=== PATIENT | male | born 1990 | race Caucasian/White ===

== ENCOUNTER 2016-08-04 01:46 | Emergency (ER) | payer BC ==
[2016-08-04] MEDS ORDERED: Ondansetron 4 MG/2 ML SDV IVPUSH ONE (01:57)
[2016-08-04] MEDS ORDERED: Sodium Chloride 0.9% 1,000 ML IV ONE (01:57)
--- NOTE | 2016-08-04 01:59 | EDM.PDOC ---
ED HPI GENERAL MEDICAL PROBLEM - General Chief Complaint: Gastrointestinal Problem Stated Complaint: FEVER, SUSPECTS FOOD POISONING Time Seen by Provider: 08/04/16 01:58 Source of Information: Reports: Patient - History of Present Illness INITIAL COMMENTS - FREE TEXT/NARRATIVE: HISTORY AND PHYSICAL: History of present illness: [] Patient said periumbilical pain since 4 PM he relates to eating chicken at [employer] intermittent fever nausea vomiting and diarrhea no chills or sweats Review of systems: As per history of present illness and below otherwise all systems reviewed and negative. Past medical history: As per history of present illness and as reviewed below otherwise noncontributory. Surgical history: As per history of present illness and as reviewed below otherwise noncontributory. Social history: No reported history of drug or alcohol abuse. Family history: As per history of present illness and as reviewed below otherwise noncontributory. Physical exam: HEENT: Atraumatic, normocephalic, pupils reactive, negative for conjunctival pallor or scleral icterus, mucous membranes moist, throat clear, neck supple, nontender, trachea midline. Lungs: Clear to auscultation, breath sounds equal bilaterally, chest nontender. Heart: S1S2, regular, negative for clicks, rubs, or JVD. Abdomen: Soft, nondistended, diffuse tenderness with focus in right lower quadrant mild guarding no rebound. Negative for masses or hepatosplenomegaly. Negative for costovertebral tenderness. Pelvis: Stable nontender. Genitourinary: Deferred. Rectal: Deferred. Extremities: Atraumatic, negative for cords or calf pain. Neurovascular unremarkable. Neuro: Awake, alert, oriented. Cranial nerves II through XII unremarkable. Cerebellum unremarkable. Motor and sensory unremarkable throughout. Exam nonfocal. Diagnostics: [] Lab as below CT abdomen pelvis with contrast Therapeutics: [] Liter normal saline bolus Zofran 8 mg IV Impression: [] Abdominal pain Gastroenteritis Definitive disposition and diagnosis as appropriate pending reevaluation and review of above. - Related Data Allergies Allergy/AdvReac Type Severity Reaction Status Date / Time naproxen Allergy Swelling Verified 08/04/16 01:53 Home Meds: Home Meds Omeprazole 2 tab PO ACBREAKFAST 11/07/15 [History] Past Medical History HEENT History: Reports: None Cardiovascular History: Reports: None Other Respiratory History: 10 yr history of smoking 1-2 packs per day Gastrointestinal History: Reports: GERD, Other (See Below) Other Gastrointestinal History: Heartburn Genitourinary History: Reports: None Musculoskeletal History: Reports: Fracture Other Musculoskeletal History: Some untreated fractures to hands, Nose several times Neurological History: Reports: None Psychiatric History: Reports: Bipolar Endocrine/Metabolic History: Reports: None Hematologic History: Reports: Blood Transfusion(s) Other Hematologic History: "Blood transfusion as a baby" Immunologic History: Reports: None Oncologic (Cancer) History: Reports: None Dermatologic History: Reports: None - Infectious Disease History Infectious Disease History: Reports: None - Past Surgical History Head Surgeries/Procedures: Reports: None HEENT Surgical History: Reports: None Cardiovascular Surgical History: Reports: None Respiratory Surgical History: Reports: None GI Surgical History: Reports: None Male Surgical History: Reports: None Endocrine Surgical History: Reports: None Neurological Surgical History: Reports: None Musculoskeletal Surgical History: Reports: None Oncologic Surgical History: Reports: None Dermatological Surgical History: Reports: None Social & Family History - Family History Family Medical History: Noncontributory - Tobacco Use Smoking Status *Q: Current Every Day Smoker Years of Tobacco use: 6 Packs/Tins Daily: 1.5 - Alcohol Use Days Per Week of Alcohol Use: 1 Number of Drinks Per Day: 4 Total Drinks Per Week: 4 - Recreational Drug Use Recreational Drug Use: No Drug Use in Last 12 Months: No ED ROS GENERAL - Review of Systems Review Of Systems: ROS reveals no pertinent complaints other than HPI. ED EXAM, GENERAL - Physical Exam Exam: See Below Course - Vital Signs Last Recorded V/S: Last Vital Signs Temp 36.4 C 08/04/16 01:56 Pulse 105 H 08/04/16 01:56 Resp 18 08/04/16 01:56 BP 178/109 H 08/04/16 01:56 Pulse Ox 98 08/04/16 01:56 - Orders/Labs/Meds Orders: Active Orders 24 hr Category Date Time Status Abdomen Pelvis w Cont [CT] Stat Exams 08/04/16 01:57 Taken Pantoprazole [ProTONIX IV] Med 08/04/16 03:49 Once 80 mg IVPUSH .BOLUS ONE Labs: Laboratory Tests 08/04/16 08/04/16 08/04/16 Range/Units 01:50 01:50 01:50 WBC 17.74 H (4.0-11.0) K/uL RBC 5.96 H (4.50-5.90) M/uL Hgb 17.6 H (13.0-17.0) g/dL Hct 51.4 H (38.0-50.0) % MCV 86.2 (80.0-98.0) fL MCH 29.5 (27.0-32.0) pg MCHC 34.2 (31.0-37.0) g/dL RDW Std Deviation 40.9 (28.0-62.0) fl RDW Coeff of Dominga 13 (11.0-15.0) % Plt Count 270 (150-400) K/uL MPV 9.20 (7.40-12.00) fL Neut % (Auto) 90.8 H (48.0-80.0) % Lymph % (Auto) 4.5 L (16.0-40.0) % Garvin % (Auto) 4.3 (0.0-15.0) % Eos % (Auto) 0.3 (0.0-7.0) % Baso % (Auto) 0.1 (0.0-1.5) % Neut # (Auto) 16.1 H (1.4-5.7) K/uL Lymph # (Auto) 0.8 (0.6-2.4) K/uL Garvin # (Auto) 0.8 (0.0-0.8) K/uL Eos # (Auto) 0.1 (0.0-0.7) K/uL Baso # (Auto) 0.0 (0.0-0.1) K/uL Nucleated RBC % 0.0 /100WBC Nucleated RBCs # 0 K/uL Sodium 141 (136-146) mmol/L Potassium 4.5 (3.5-5.1) mmol/L Chloride 105 (98-110) mmol/L Carbon Dioxide 22 (21-31) mmol/L BUN 16 (6.0-23.0) mg/dL Creatinine 1.4 (0.6-1.5) mg/dL Est Cr Clr Drug Dosing 102.46 mL/min Estimated GFR (MDRD) > 60.0 ml/min Glucose 136 H (60-110) mg/dL Calcium 10.2 (8.8-10.8) mg/dL Total Bilirubin 0.5 (0.1-1.5) mg/dL AST 17 (5-40) IU/L ALT 18 (8-54) IU/L Alkaline Phosphatase 57 (40-150) Troponin I < 0.10 (0.0-0.29) NG/ML Total Protein 8.9 H (6.0-8.0) g/dL Albumin 5.3 H (3.5-5.0) g/dL Globulin 3.6 H (2.0-3.5) g/dL Albumin/Globulin Ratio 1.5 (1.3-2.8) Amylase 54 (10-90) U/L Lipase 17 (7-80) U/L Urine Color Urine Appearance Urine pH (5.0-8.0) Ur Specific [place] (1.001-1.035) Urine Protein (NEGATIVE) mg/dL Urine Glucose (UA) (NEGATIVE) mg/dL Urine Ketones (NEGATIVE) mg/dL Urine Occult Blood (NEGATIVE) Urine Nitrite (NEGATIVE) Urine Bilirubin (NEGATIVE) Urine Ictotest Urine Urobilinogen (<2.0) EU/dL Ur Leukocyte Esterase (NEGATIVE) Urine RBC (0-2/HPF) Urine WBC (0-5/HPF) Ur Epithelial Cells (NONE-FEW) Urine Bacteria (NEGATIVE) Urine Mucus (NONE-MOD) 08/04/16 Range/Units 02:06 WBC (4.0-11.0) K/uL RBC (4.50-5.90) M/uL Hgb (13.0-17.0) g/dL Hct (38.0-50.0) % MCV (80.0-98.0) fL MCH (27.0-32.0) pg MCHC (31.0-37.0) g/dL RDW Std Deviation (28.0-62.0) fl RDW Coeff of Dominga (11.0-15.0) % Plt Count (150-400) K/uL MPV (7.40-12.00) fL Neut % (Auto) (48.0-80.0) % Lymph % (Auto) (16.0-40.0) % Garvin % (Auto) (0.0-15.0) % Eos % (Auto) (0.0-7.0) % Baso % (Auto) (0.0-1.5) % Neut # (Auto) (1.4-5.7) K/uL Lymph # (Auto) (0.6-2.4) K/uL Garvin # (Auto) (0.0-0.8) K/uL Eos # (Auto) (0.0-0.7) K/uL Baso # (Auto) (0.0-0.1) K/uL Nucleated RBC % /100WBC Nucleated RBCs # K/uL Sodium (136-146) mmol/L Potassium (3.5-5.1) mmol/L Chloride (98-110) mmol/L Carbon Dioxide (21-31) mmol/L BUN (6.0-23.0) mg/dL Creatinine (0.6-1.5) mg/dL Est Cr Clr Drug Dosing mL/min Estimated GFR (MDRD) ml/min Glucose (60-110) mg/dL Calcium (8.8-10.8) mg/dL Total Bilirubin (0.1-1.5) mg/dL AST (5-40) IU/L ALT (8-54) IU/L Alkaline Phosphatase (40-150) Troponin I (0.0-0.29) NG/ML Total Protein (6.0-8.0) g/dL Albumin (3.5-5.0) g/dL Globulin (2.0-3.5) g/dL Albumin/Globulin Ratio (1.3-2.8) Amylase (10-90) U/L Lipase (7-80) U/L Urine Color YELLOW Urine Appearance CLEAR Urine pH 7.0 (5.0-8.0) Ur Specific [place] 1.015 (1.001-1.035) Urine Protein TRACE (NEGATIVE) mg/dL Urine Glucose (UA) NEGATIVE (NEGATIVE) mg/dL Urine Ketones NEGATIVE (NEGATIVE) mg/dL Urine Occult Blood NEGATIVE (NEGATIVE) Urine Nitrite NEGATIVE (NEGATIVE) Urine Bilirubin SMALL H (NEGATIVE) Urine Ictotest NEGATIVE Urine Urobilinogen 0.2 (<2.0) EU/dL Ur Leukocyte Esterase NEGATIVE (NEGATIVE) Urine RBC 0-1 (0-2/HPF) Urine WBC 0-3 (0-5/HPF) Ur Epithelial Cells NOT SEEN (NONE-FEW) Urine Bacteria FEW (NEGATIVE) Urine Mucus MODERATE (NONE-MOD) Meds: Medications Discontinued Medications Generic Name Dose Route Start Last Admin Trade Name Suri PRN Reason Stop Dose Admin Sodium Chloride 1,000 mls @ 999 mls/hr 08/04/16 01:57 08/04/16 02:03 Normal Saline IV 08/04/16 02:57 999 mls/hr STAT ONE Administration Iopamidol 100 ml 08/04/16 03:03 08/04/16 03:08 Isovue-370 (76%) IVPUSH 08/04/16 03:04 100 ml ONETIME STA Administration Ondansetron HCl 8 mg 08/04/16 01:57 08/04/16 02:05 Zofran IVPUSH 08/04/16 01:58 8 mg ONETIME ONE Administration Departure - Departure Time of Disposition: 03:49 Disposition: Home, Self-Care 01 Condition: good Clinical Impression: Gastroenteritis - Discharge Information Forms: ED Department Discharge Additional Instructions: Medication as prescribed Recommend clear liquid diet for 24 hours water or Gatorade Return if symptoms persist or worsen Followup with primary care in 2 weeks The following information is given to patients seen in the emergency department who are being discharged to home. This information is to outline your options for follow-up care. We provide all patients seen in our emergency department with a follow-up referral. The need for follow-up, as well as the timing and circumstances, are variable depending upon the specifics of your emergency department visit. If you don't have a primary care physician on staff, we will provide you with a referral. We always advise you to contact your personal physician following an emergency department visit to inform them of the circumstance of the visit and for follow-up with them and/or the need for any referrals to a consulting specialist. The emergency department will also refer you to a specialist when appropriate. This referral assures that you have the opportunity for follow-up care with a specialist. All of these measure are taken in an effort to provide you with optimal care, which includes your follow-up. Under all circumstances we always encourage you to contact your private physician who remains a resource for coordinating your care. When calling for follow-up care, please make the office aware that this follow-up is from your recent emergency room visit. If for any reason you are refused follow-up, please contact the [facility] emergency department at and asked to speak to the emergency department charge nurse. - My Orders Last 24 Hours: My Active Orders 08/04/16 01:57 Abdomen Pelvis w Cont [CT] Stat 08/04/16 03:49 Pantoprazole [ProTONIX IV] 80 mg IVPUSH .BOLUS ONE - Assessment/Plan Last 24 Hours: My Active Orders 08/04/16 01:57 Abdomen Pelvis w Cont [CT] Stat 08/04/16 03:49 Pantoprazole [ProTONIX IV] 80 mg IVPUSH .BOLUS ONE
[2016-08-04 02:31] LABS: CHLORIDE,CL 105 mmol/L (98-110); SODIUM,NA 141 mmol/L (136-146)
[2016-08-04] MEDS ORDERED: Iopamidol 755 Mg/ML 100 ML Bottle IVPUSH STA (03:03)
[2016-08-04] MEDS ORDERED: Pantoprazole 40 MG Vial IVPUSH ONE (03:49)
[2016-08-04 04:20] VITALS: BP 148/80
--- NOTE | 2016-08-05 14:54 | CT ---
EXAM DATE: 08/04/16 PATIENT'S AGE: 25 Patient: IAN SALINAS Facility: [facility], [place], [place] : 1990 Study: CT Abdomen/Pelvis [id number]/4/2017 3:11:57 AM Ordering Physician: Danyel Mcadams Final Report: History: Abdominal pain, vomiting and diarrhea. Technique: Intravenous contrast enhanced CT of the abdomen and pelvis. 100 mL of Isovue- 370 intravenous contrast administered. Comparison: 12/07/2015. Findings: There is likely mild fatty infiltration of the liver. No focal hepatic mass. No biliary ductal dilatation. Gallbladder does not appear overly distended. Spleen size within normal limits. Adrenal glands are normal. There is no focal pancreatic abnormality or acute peripancreatic inflammatory change. Symmetric nephrograms. No hydronephrosis or renal mass. Urinary bladder is contracted and not well evaluated by CT. - Radiodensity within the stomach may relate to a recently ingested pill. Small amount of fluid within several small bowel loops without a transition point to suggest obstruction. No appendicitis. No diverticulitis or definite colitis. Postsurgical changes involving the inguinal regions likely related to prior hernia repair. There is no free intraperitoneal air. Small mesenteric lymph nodes are likely reactive. No abdominal aortic aneurysm. - Degenerative changes of both hips. There is a chronic ossicle along the anterosuperior acetabulum on the right which appears unchanged. This could relate to a large os acetabula or sequelae of remote trauma. Mild sacroiliac joint degenerative changes. No lumbar fracture. - No consolidation within the lung bases or pleural effusion. Impression: 1. No specific identified cause of the patients symptoms. 2. Mild fatty infiltration of liver. 3. Postsurgical changes involving inguinal regions likely related to prior inguinal hernia repair. Please note that all CT scans at this facility use dose modulation, iterative reconstruction, and/or weight-based dosing when appropriate to reduce radiation dose to as low as reasonably achievable. Dictated by Zenon Anderson MD @ Aug 04 2016 10:46AM (Electronic Signature) Report Signed by Proxy. MTDD
== END 2016-08-04 04:20 | disposition home or self-care (01) ==
LOC: MW.ED 01:46
DX: K52.9 Noninfective gastroenteritis and colitis, unspecified (principal); K21.9 Gastro-esophageal reflux disease without esophagitis; F17.210 Nicotine dependence, cigarettes, uncomplicated; Z88.8 Allergy status to other drugs, medicaments and biological substances
CPT/HCPCS: 74177; 80053; 81001; 82150; 83690; 84484; 85025; 96361; 96374; 96375; 99284; C9113; J2405; J7040; Q9967

== ENCOUNTER 2017-06-03 10:07 | Emergency (ER) | payer BC ==
[2017-06-03 10:19] VITALS: BP 154/74
--- NOTE | 2017-06-03 10:50 | EDM.PDOC ---
ED HPI GENERAL MEDICAL PROBLEM - General Chief Complaint: Fever Stated Complaint: FEVER Time Seen by Provider: 06/03/17 10:35 Source of Information: Reports: Patient History Limitations: Reports: No Limitations - History of Present Illness INITIAL COMMENTS - FREE TEXT/NARRATIVE: HISTORY AND PHYSICAL: History of present illness: [Patient comes to the emergency room complaining of fever and body aches for the past 4 days. Symptoms began Friday night with a sore throat earaches cough and body aches. His fever has been up to 103 as recent as earlier this morning. He took some Tylenol and ibuprofen at 9 AM and he is actually feeling improved now. Is having hot flashes alternating with chills. No ear drainage or runny nose. No sputum production with coughing. Denies abdominal pain, nausea and vomiting. No blood in his urine or burning with urination. Complains of his entire body hurting. No swelling noted. Did not have a flu shot this year. Is otherwise healthy.] Review of systems: As per history of present illness and below otherwise all systems reviewed and negative. Past medical history: As per history of present illness and as reviewed below otherwise noncontributory. Surgical history: As per history of present illness and as reviewed below otherwise noncontributory. Social history: No reported history of drug or alcohol abuse. Family history: As per history of present illness and as reviewed below otherwise noncontributory. Physical exam: HEENT: Atraumatic, normocephalic. TMs are pearly green and without erythema. Oral mucous membranes are pink and moist no tonsillar swelling erythema or exudate. Neck is supple, no lymphadenopathy noted. Lungs: Clear to auscultation, breath sounds equal bilaterally. No wheezing crackles or rales. Heart: S1S2, regular rate and rhythm. Abdomen: Soft, nondistended, nontender. Sounds are normoactive throughout. No masses guarding or rebound. Pelvis: Stable nontender. Genitourinary: Deferred. Rectal: Deferred. Extremities: Atraumatic no swelling or cyanosis. Neurovascular unremarkable. Neuro: Awake, alert, oriented. Motor and sensory unremarkable throughout. Exam nonfocal. Diagnostics: [Influenza swab] Impression: [Viral illness] Plan: [Influenza swab is negative. Patient's symptoms are viral in nature. Discussed with patient that he should push fluids, alternate Tylenol and ibuprofen as needed for fever or discomfort. Get plenty of rest. Strict return precautions are reviewed. He is in agreement with today's plan.] Definitive disposition and diagnosis as appropriate pending reevaluation and review of above. generealized Pain Score (Numeric/FACES): 6 - Related Data Allergies Allergy/AdvReac Type Severity Reaction Status Date / Time naproxen Allergy Swelling Verified 06/03/17 10:19 Home Meds: Home Meds Omeprazole 2 tab PO ACBREAKFAST 11/07/15 [History] Past Medical History HEENT History: Reports: None Cardiovascular History: Reports: None Respiratory History: Reports: None Other Respiratory History: 10 yr history of smoking 1-2 packs per day Gastrointestinal History: Reports: GERD, Other (See Below) Other Gastrointestinal History: Heartburn Genitourinary History: Reports: None Musculoskeletal History: Reports: Fracture Other Musculoskeletal History: Some untreated fractures to hands, Nose several times Neurological History: Reports: None Psychiatric History: Reports: Bipolar Endocrine/Metabolic History: Reports: None Hematologic History: Reports: Blood Transfusion(s) Other Hematologic History: "Blood transfusion as a baby" Immunologic History: Reports: None Oncologic (Cancer) History: Reports: None Dermatologic History: Reports: None - Infectious Disease History Infectious Disease History: Reports: None - Past Surgical History Head Surgeries/Procedures: Reports: None HEENT Surgical History: Reports: None Cardiovascular Surgical History: Reports: None Respiratory Surgical History: Reports: None GI Surgical History: Reports: None, Hernia, Inguinal Male Surgical History: Reports: None Endocrine Surgical History: Reports: None Neurological Surgical History: Reports: None Musculoskeletal Surgical History: Reports: None Oncologic Surgical History: Reports: None Dermatological Surgical History: Reports: None Social & Family History - Family History Family Medical History: Noncontributory - Tobacco Use Smoking Status *Q: Current Every Day Smoker Years of Tobacco use: 10 Packs/Tins Daily: 1 - Caffeine Use Caffeine Use: Reports: Coffee, Energy Drinks, Soda - Alcohol Use Days Per Week of Alcohol Use: 1 Number of Drinks Per Day: 4 Total Drinks Per Week: 4 - Recreational Drug Use Recreational Drug Use: No Drug Use in Last 12 Months: No Recreational Drug Type: Reports: Marijuana/Hashish ED ROS GENERAL - Review of Systems Review Of Systems: ROS reveals no pertinent complaints other than HPI. ED EXAM, GENERAL - Physical Exam Exam: See Below Course - Vital Signs Last Recorded V/S: Last Vital Signs Temp 97.1 F 06/03/17 10:16 Pulse 83 06/03/17 10:16 Resp 16 06/03/17 10:16 BP 154/74 H 06/03/17 10:16 Pulse Ox 97 06/03/17 10:16 - Orders/Labs/Meds Orders: Active Orders 24 hr Category Date Time Status INFLUENZA A+B AG SCREEN [RM] Stat Lab 06/03/17 10:40 Ordered Departure - Departure Time of Disposition: 11:10 Disposition: Home, Self-Care 01 Condition: Good Clinical Impression: Viral illness - Discharge Information Referrals: PCP,None [Primary Care Provider] - Forms: ED Department Discharge Additional Instructions: The following information is given to patients seen in the emergency department who are being discharged to home. This information is to outline your options for follow-up care. We provide all patients seen in our emergency department with a follow-up referral. The need for follow-up, as well as the timing and circumstances, are variable depending upon the specifics of your emergency department visit. If you don't have a primary care physician on staff, we will provide you with a referral. We always advise you to contact your personal physician following an emergency department visit to inform them of the circumstance of the visit and for follow-up with them and/or the need for any referrals to a consulting specialist. The emergency department will also refer you to a specialist when appropriate. This referral assures that you have the opportunity for follow-up care with a specialist. All of these measure are taken in an effort to provide you with optimal care, which includes your follow-up. Under all circumstances we always encourage you to contact your private physician who remains a resource for coordinating your care. When calling for follow-up care, please make the office aware that this follow-up is from your recent emergency room visit. If for any reason you are refused follow-up, please contact the [facility] emergency department at and asked to speak to the emergency department charge nurse. [facility] [address] [place] [id number] Follow-up with your primary care provider at the clinic listed above in 48-72 hours. Alternate Tylenol with ibuprofen as needed for discomfort. Push fluids. Get plenty of rest. Return to ER as needed as discussed. - My Orders Last 24 Hours: My Active Orders 06/03/17 10:40 INFLUENZA A+B AG SCREEN [RM] Stat - Assessment/Plan Last 24 Hours: My Active Orders 06/03/17 10:40 INFLUENZA A+B AG SCREEN [RM] Stat
== END 2017-06-03 11:32 | disposition home or self-care (01) ==
LOC: MW.ED 10:07
DX: B34.9 Viral infection, unspecified (principal); F17.210 Nicotine dependence, cigarettes, uncomplicated; K21.9 Gastro-esophageal reflux disease without esophagitis; Z88.6 Allergy status to analgesic agent
CPT/HCPCS: 87804; 99282; 99283

== ENCOUNTER 2019-02-12 21:44 | Emergency (ER) | payer BC ==
[2019-02-12] MEDS ORDERED: Ketorolac 60 MG/2 ML SDV IM ONE (22:03)
--- NOTE | 2019-02-12 22:08 | EDM.PDOC ---
ED HPI GENERAL MEDICAL PROBLEM - General Chief Complaint: Upper Extremity Injury/Pain Stated Complaint: SHOULDER PAIN Time Seen by Provider: 02/12/19 21:51 - History of Present Illness INITIAL COMMENTS - FREE TEXT/NARRATIVE: HISTORY AND PHYSICAL: History of present illness: The patient is a 28-year-old male who presents with several days of left shoulder pain easy is an anterior shoulder as the site of discomfort. He does not recall any specific injury but he does a lot of lifting pulling and moving in the [employer] for work. He is right-hand dominant. He says that certain movements will trigger it and a certain positions will make him feel a little tingly in his hand but there is no weakness in the arm and no neck injury or midline neck or back pain. He has tried 1 dose of ibuprofen and one of his ' s [place] and did not get relief. The patient has a known history of allergy to Aleve but can take Motrin and ibuprofen products. The patient did see a chiropractor and the pain did not get better so he is here for [facility]. He also says that he is leaving to go to [place] next week for a few weeks and he is concerned about the pain Review of systems: As per history of present illness and below otherwise all systems reviewed and negative. Past medical history: As per history of present illness and as reviewed below otherwise noncontributory. Surgical history: As per history of present illness and as reviewed below otherwise noncontributory. Social history: No reported history of drug or alcohol abuse. Family history: As per history of present illness and as reviewed below otherwise noncontributory. Physical exam: General: Well-developed well-nourished male who is nontoxic and vital signs are noted by me HEENT: Atraumatic, normocephalic, negative for conjunctival pallor or scleral icterus, mucous membranes moist, throat clear, neck supple, nontender, trachea midline. There are no midline step-offs tenderness or defects of the cervical or thoracic spine and there is reproducible tenderness with palpation of the trapezius at the neck area extending down to the mid back. Lungs: Clear to auscultation, breath sounds equal bilaterally, chest nontender. Heart: S1S2, regular, rate and rhythm no overt murmurs Abdomen: Soft, nondistended, nontender. Pelvis: deferred Genitourinary: Deferred. Rectal: Deferred. Extremities: Atraumatic, negative for cords or calf pain. Neurovascular unremarkable. on palpation of the left upper extremity there is no bony tenderness defects or architectural abnormalities and there is no evidence of any dislocation clinically. The patient can passively range of motion with only some mild discomfort with full abduction. I do not feel any gross fullness in the shoulder bursa but there is some trigger point tenderness. There is no scapula or posterior shoulder musculature tenderness defects or deformities. Neuro: Awake, alert, oriented. Cranial nerves II through XII unremarkable. Cerebellum unremarkable. Motor and sensory unremarkable throughout. Exam nonfocal. Diagnostics: X-ray left shoulder Therapeutics: Norflex Toradol Impression: Left shoulder pain strain/musculoskeletal pain Definitive disposition and diagnosis as appropriate pending reevaluation and review of above. Left Shoulder/Arm Pain Score (Numeric/FACES): 7 - Related Data Allergies Allergy/AdvReac Type Severity Reaction Status Date / Time naproxen Allergy Swelling Verified 02/12/19 21:58 Home Meds: Home Meds Omeprazole 2 tab PO ACBREAKFAST 11/07/15 [History] Past Medical History HEENT History: Reports: None Cardiovascular History: Reports: None Respiratory History: Reports: None Other Respiratory History: 10 yr history of smoking 1-2 packs per day Gastrointestinal History: Reports: GERD, Other (See Below) Other Gastrointestinal History: Heartburn Genitourinary History: Reports: None Musculoskeletal History: Reports: Fracture Other Musculoskeletal History: Some untreated fractures to hands, Nose several times Neurological History: Reports: None Psychiatric History: Reports: Bipolar Endocrine/Metabolic History: Reports: None Hematologic History: Reports: Blood Transfusion(s) Other Hematologic History: "Blood transfusion as a baby" Immunologic History: Reports: None Oncologic (Cancer) History: Reports: None Dermatologic History: Reports: None - Infectious Disease History Infectious Disease History: Reports: None - Past Surgical History Head Surgeries/Procedures: Reports: None HEENT Surgical History: Reports: None Cardiovascular Surgical History: Reports: None Respiratory Surgical History: Reports: None GI Surgical History: Reports: None, Colonoscopy, Hernia, Inguinal Male Surgical History: Reports: None Endocrine Surgical History: Reports: None Neurological Surgical History: Reports: None Musculoskeletal Surgical History: Reports: None Oncologic Surgical History: Reports: None Dermatological Surgical History: Reports: None Social & Family History - Family History Family Medical History: Noncontributory - Tobacco Use Smoking Status *Q: Current Every Day Smoker Years of Tobacco use: 10 Packs/Tins Daily: 1 - Caffeine Use Caffeine Use: Reports: Coffee, Soda - Recreational Drug Use Recreational Drug Use: No Review of Systems - Review of Systems Review Of Systems: Comprehensive ROS is negative, except as noted in HPI. ED EXAM, GENERAL - Physical Exam Exam: See Below (See dictation) Course - Vital Signs Last Recorded V/S: Last Vital Signs Temp 36.1 C 02/12/19 21:55 Pulse 73 02/12/19 21:55 Resp 18 02/12/19 21:55 BP 149/98 H 02/12/19 21:55 Pulse Ox 98 02/12/19 21:55 - Orders/Labs/Meds Orders: Active Orders 24 hr Category Date Time Status Shoulder Comp Lt [CR] Stat Exams 02/12/19 22:03 Taken Meds: Medications Discontinued Medications Generic Name Dose Route Start Last Admin Trade Name Suri PRN Reason Stop Dose Admin Ketorolac Tromethamine 60 mg 02/12/19 22:03 02/12/19 22:10 Toradol IM 02/12/19 22:04 60 mg ONETIME ONE Administration Orphenadrine Citrate 60 mg 02/12/19 22:03 02/12/19 22:10 Norflex IM 02/12/19 22:04 60 mg ONETIME ONE Administration Departure - Departure Time of Disposition: 22:38 Disposition: Home, Self-Care 01 Condition: Good Clinical Impression: Left shoulder pain Qualifiers: Chronicity: acute Qualified Code(s): M25.512 - Pain in left shoulder - Discharge Information Instructions: Shoulder Pain Referrals: Cristin Fitzpatrick NP [Primary Care Provider] - Forms: ED Department Discharge Additional Instructions: The following information is given to patients seen in the emergency department who are being discharged to home. This information is to outline your options for follow-up care. We provide all patients seen in our emergency department with a follow-up referral. The need for follow-up, as well as the timing and circumstances, are variable depending upon the specifics of your emergency department visit. If you don't have a primary care physician on staff, we will provide you with a referral. We always advise you to contact your personal physician following an emergency department visit to inform them of the circumstance of the visit and for follow-up with them and/or the need for any referrals to a consulting specialist. The emergency department will also refer you to a specialist when appropriate. This referral assures that you have the opportunity for followup care with a specialist. All of these measure are taken in an effort to provide you with optimal care, which includes your followup. Under all circumstances we always encourage you to contact your private physician who remains a resource for coordinating your care. When calling for followup care, please make the office aware that this follow-up is from your recent emergency room visit. If for any reason you are refused follow-up, please contact the [facility] emergency department at and ask to speak to the emergency department charge nurse. [facility] Special[facility] - Orthopedic Clinic Professional [address], [address] [place] [address] Use medications as prescribed and needed for discomfort and use ice to area after all activities followed by heat and stretching as we discussed. These also take [id number] ibuprofen, 800 mg every 8 hours, along with the muscle relaxer and you may add Tylenol as you choose. Please call on Friday morning and schedule a follow-up appointment with our orthopedic clinic for further care and evaluation and return to ER as needed and as discussed Sepsis Event Note - Evaluation Sepsis Screening Result: No Definite Risk - Focused Exam Vital Signs: Vital Signs Temp Pulse Resp BP Pulse Ox 02/12/19 21:55 36.1 C 73 18 149/98 H 98 Date Exam was Performed: 02/12/19 Time Exam was Performed: 22:57 - My Orders Last 24 Hours: My Active Orders 02/12/19 22:03 Shoulder Comp Lt [CR] Stat - Assessment/Plan Last 24 Hours: My Active Orders 02/12/19 22:03 Shoulder Comp Lt [CR] Stat
--- NOTE | 2019-02-12 23:00 | CR ---
Indication: Pain Technique: Left shoulder 3 views. Comparison: None Findings: Bones: Alignment is normal. No fractures or bone lesions. Joint spaces: Unremarkable. Soft tissues: Unremarkable. Impression: Unremarkable left shoulder series. Dictated by Wily Campbell MD @ Feb 12 2019 10:56PM Signed by Dr. Wily Campbell @ Feb 12 2019 10:57PM
[2019-02-12 23:03] VITALS: BP 140/90; PULSE 61
== END 2019-02-12 23:00 | disposition home or self-care (01) ==
LOC: MW.ED 21:44
DX: S46.912A Strain of unspecified muscle, fascia and tendon at shoulder and upper arm level, left arm, initial encounter (principal); K21.9 Gastro-esophageal reflux disease without esophagitis; F17.210 Nicotine dependence, cigarettes, uncomplicated; Z79.899 Other long term (current) drug therapy; Z88.8 Allergy status to other drugs, medicaments and biological substances; X50.0XXA Overexertion from strenuous movement or load, initial encounter
CPT/HCPCS: 73030; 96372; 99283; J1885; J2360

== ENCOUNTER 2019-02-16 15:18 | Emergency (ER) | payer BC ==
--- NOTE | 2019-02-16 15:32 | EDM.PDOC ---
ED HPI GENERAL MEDICAL PROBLEM - General Chief Complaint: Upper Extremity Injury/Pain Stated Complaint: LT SHOULDER PAIN Time Seen by Provider: 02/16/19 15:32 Source of Information: Reports: Patient - History of Present Illness INITIAL COMMENTS - FREE TEXT/NARRATIVE: HISTORY AND PHYSICAL: History of present illness: [pt presents w left shoulder pain 8/10 with movement, unable to sleep due to pain, no injury reported, pain began after heavy lifting. he has been on motrin and flexeril for a week with little benefit no f/n/v/c/s/cp/sob/gil/d/palp ] Review of systems: As per history of present illness and below otherwise all systems reviewed and negative. Past medical history: As per history of present illness and as reviewed below otherwise noncontributory. Surgical history: As per history of present illness and as reviewed below otherwise noncontributory. Social history: No reported history of drug or alcohol abuse. Family history: As per history of present illness and as reviewed below otherwise noncontributory. Physical exam: HEENT: Atraumatic, normocephalic, pupils reactive, negative for conjunctival pallor or scleral icterus, mucous membranes moist, throat clear, neck supple, nontender, trachea midline. Lungs: Clear to auscultation, breath sounds equal bilaterally, chest nontender. Heart: S1S2, regular, negative for clicks, rubs, or JVD. Abdomen: Soft, nondistended, nontender. Negative for masses or hepatosplenomegaly. Negative for costovertebral tenderness. Pelvis: Stable nontender. Genitourinary: Deferred. Rectal: Deferred. Extremities: Atraumatic, negative for cords or calf pain. Neurovascular unremarkable. left upper ext: no pain with head movement, muscle spasm appreciated in trapezius distribution, entire limb neurovaclar intact, no r/w/e or open lesion , limited movement due to leidy Neuro: Awake, alert, oriented. Cranial nerves II through XII unremarkable. Cerebellum unremarkable. Motor and sensory unremarkable throughout. Exam nonfocal. Diagnostics: [L shoulder on electronic file ] Therapeutics: [norco ] Impression: [left shoulder pain ] Definitive disposition and diagnosis as appropriate pending reevaluation and review of above. left arm Pain Score (Numeric/FACES): 10 - Related Data Allergies Allergy/AdvReac Type Severity Reaction Status Date / Time naproxen Allergy Swelling Verified 12/17/19 15:33 Home Meds: Home Meds Omeprazole 2 tab PO ACBREAKFAST 11/07/15 [History] Past Medical History HEENT History: Reports: None Cardiovascular History: Reports: None Respiratory History: Reports: None Other Respiratory History: 10 yr history of smoking 1-2 packs per day Gastrointestinal History: Reports: GERD, Other (See Below) Other Gastrointestinal History: Heartburn Genitourinary History: Reports: None Musculoskeletal History: Reports: Fracture Other Musculoskeletal History: Some untreated fractures to hands, Nose several times Neurological History: Reports: None Psychiatric History: Reports: Bipolar Endocrine/Metabolic History: Reports: None Hematologic History: Reports: Blood Transfusion(s) Other Hematologic History: "Blood transfusion as a baby" Immunologic History: Reports: None Oncologic (Cancer) History: Reports: None Dermatologic History: Reports: None - Infectious Disease History Infectious Disease History: Reports: None - Past Surgical History Head Surgeries/Procedures: Reports: None HEENT Surgical History: Reports: None Cardiovascular Surgical History: Reports: None Respiratory Surgical History: Reports: None GI Surgical History: Reports: None, Colonoscopy, Hernia, Inguinal Male Surgical History: Reports: None Endocrine Surgical History: Reports: None Neurological Surgical History: Reports: None Musculoskeletal Surgical History: Reports: None Oncologic Surgical History: Reports: None Dermatological Surgical History: Reports: None Social & Family History - Family History Family Medical History: Noncontributory - Caffeine Use Caffeine Use: Reports: Coffee, Soda Review of Systems - Review of Systems Review Of Systems: See Below ED EXAM, GENERAL - Physical Exam Exam: See Below Course - Vital Signs Last Recorded V/S: Last Vital Signs Temp 96.3 F 02/16/19 15:30 Pulse 97 02/16/19 15:30 Resp 18 02/16/19 15:30 BP 145/94 H 02/16/19 15:30 Pulse Ox 96 02/16/19 15:30 Departure - Departure Time of Disposition: 15:51 Disposition: Home, Self-Care 01 Condition: Good Clinical Impression: Shoulder pain - Discharge Information Referrals: PCP,None [Primary Care Provider] - Forms: ED Department Discharge Additional Instructions: medication as prescribed sling for comfort f/u orthopedist as appointment is in progress [facility] - Orthopedic Clinic Professional [address], [address] [place] [id number] [facility] The following information is given to patients seen in the emergency department who are being discharged to home. This information is to outline your options for follow-up care. We provide all patients seen in our emergency department with a follow-up referral. The need for follow-up, as well as the timing and circumstances, are variable depending upon the specifics of your emergency department visit. If you don't have a primary care physician on staff, we will provide you with a referral. We always advise you to contact your personal physician following an emergency department visit to inform them of the circumstance of the visit and for follow-up with them and/or the need for any referrals to a consulting specialist. The emergency department will also refer you to a specialist when appropriate. This referral assures that you have the opportunity for follow-up care with a specialist. All of these measure are taken in an effort to provide you with optimal care, which includes your follow-up. Under all circumstances we always encourage you to contact your private physician who remains a resource for coordinating your care. When calling for follow-up care, please make the office aware that this follow-up is from your recent emergency room visit. If for any reason you are refused follow-up, please contact the [facility] emergency department at and asked to speak to the emergency department charge nurse. Sepsis Event Note - Focused Exam Vital Signs: Vital Signs Temp Pulse Resp BP Pulse Ox 02/16/19 15:30 96.3 F 97 18 145/94 H 96 Date Exam was Performed: 02/16/19 Time Exam was Performed: 15:47
[2019-02-16 16:13] VITALS: BP 138/75; PULSE 84
== END 2019-02-16 16:13 | disposition home or self-care (01) ==
LOC: MW.ED 15:18
DX: M25.511 Pain in right shoulder (principal); Z88.8 Allergy status to other drugs, medicaments and biological substances
CPT/HCPCS: 99283

== ENCOUNTER 2020-09-27 21:56 | Emergency (ER) | payer BC ==
[2020-09-27 22:11] VITALS: BP 120/60; PULSE 88
[2020-09-27] MEDS ORDERED: Acetaminophen 500 MG Tab PO ONE (22:13)
--- NOTE | 2020-09-27 22:46 | CR ---
INDICATION: Pain in great toe TECHNIQUE: Foot radiograph 3 views left COMPARISON: None FINDINGS: Bone: No acute fractures or aggressive bone lesions are identified. A radiographic marker is noted over the 1st MTP joint, designating the site of maximal reported symptoms. Joint: The visualized hindfoot, midfoot, and forefoot joints are unremarkable in appearance. No significant ankle effusion is seen. Soft tissue: Unremarkable. No radiopaque foreign bodies are seen. IMPRESSION: 1. No acute osseous injuries or abnormalities are noted. Dictated by: Loco Perez MD @ 09/27/2020 22:43:23 (Electronically Signed)
[2020-09-27] MEDS ORDERED: Colchicine 0.6 MG Tab PO ONE (22:54)
--- NOTE | 2020-09-27 22:54 | EDM.PDOC ---
ED HPI GENERAL MEDICAL PROBLEM - General Chief Complaint: Lower Extremity Injury/Pain Stated Complaint: LT BIG TOE POSSIBLY BROKEN Time Seen by Provider: 09/27/20 21:59 - History of Present Illness INITIAL COMMENTS - FREE TEXT/NARRATIVE: History of present illness: 29-year-old male presenting with left foot great toe pain. No recalled injury although does report he stands a lot at work and he may have been standing on something uneven on the foot pad of that foot. He has had prior injuries to the other foot but never to that foot. No fevers or chills. There is some mild redness of the great toe. Denies any other symptoms. Review of systems: As per history of present illness and below otherwise all systems reviewed and negative. Past medical history: As per history of present illness and as reviewed below otherwise noncontributory. Surgical history: Inguinal hernia repair Social history: Cigarettes and occasional marijuana Family history: As per history of present illness and as reviewed below otherwise noncontributory. Physical exam: GEN: no acute distress, well appearing HEENT: Atraumatic, normocephalic, mucous membranes moist, Neck: supple Lungs: No respiratory distress. Heart: RRR Abdomen: nondistended. Back: Painless range of motion Extremities: Atraumatic. Neurovascularly intact. Left great toe with mild erythema, no warmth to touch, pain with medial to lateral range of motion. No d orsal or plantar flexion pain. No other areas of pain or injury. Neuro: Awake, alert, oriented. Neuro Exam nonfocal. Skin: warm, dry, mild erythema of the great toe Diagnostics: X-ray left foot negative for fracture Therapeutics: Tylenol here MDM: Suspect gout as x-ray negative for fracture and no recall trauma. Will start on medications. No signs of septic joint. Impression: left foot gout Plan: colchicine Definitive disposition and diagnosis as appropriate pending reevaluation and review of above. left foot Pain Score (Numeric/FACES): 7 - Related Data Allergies Allergy/AdvReac Type Severity Reaction Status Date / Time naproxen Allergy Swelling Verified 09/27/20 22:08 Home Meds: Home Meds Omeprazole 2 tab PO ACBREAKFAST 11/07/15 [History] Colchicine 0.6 mg PO BID #20 capsule 09/27/20 [Rx] Past Medical History - Past Health History Medical/Surgical History: Denies Medical/Surgical History HEENT History: Reports: None Cardiovascular History: Reports: None Respiratory History: Reports: None Other Respiratory History: 10 yr history of smoking 1-2 packs per day Gastrointestinal History: Reports: GERD, Other (See Below) Other Gastrointestinal History: Heartburn Genitourinary History: Reports: None Musculoskeletal History: Reports: Fracture Other Musculoskeletal History: Some untreated fractures to hands, Nose several times Neurological History: Reports: None Psychiatric History: Reports: Bipolar Endocrine/Metabolic History: Reports: None Hematologic History: Reports: Blood Transfusion(s) Other Hematologic History: "Blood transfusion as a baby" Immunologic History: Reports: None Oncologic (Cancer) History: Reports: None Dermatologic History: Reports: None - Infectious Disease History Infectious Disease History: Reports: None - Past Surgical History Head Surgeries/Procedures: Reports: None HEENT Surgical History: Reports: None Cardiovascular Surgical History: Reports: None Respiratory Surgical History: Reports: None GI Surgical History: Reports: None, Colonoscopy, Hernia, Inguinal Male Surgical History: Reports: None Endocrine Surgical History: Reports: None Neurological Surgical History: Reports: None Musculoskeletal Surgical History: Reports: None Oncologic Surgical History: Reports: None Dermatological Surgical History: Reports: None Social & Family History - Family History Family Medical History: No Pertinent Family History - Caffeine Use Caffeine Use: Reports: Coffee, Soda Review of Systems - Review of Systems Review Of Systems: See Below (See dictation) ED EXAM, GENERAL - Physical Exam Exam: See Below (See dictation) Course - Vital Signs Last Recorded V/S: Last Vital Signs Temp 97.2 F 09/27/20 22:05 Pulse 88 09/27/20 22:05 Resp 18 09/27/20 22:05 BP 120/60 09/27/20 22:05 Pulse Ox 97 09/27/20 22:05 - Orders/Labs/Meds Meds: Medications Discontinued Medications Generic Name Dose Route Start Last Admin Trade Name Freq PRN Reason Stop Dose Admin Acetaminophen 1,000 mg 09/27/20 22:13 Acetaminophen 500 Mg Tab PO 09/27/20 22:14 ONETIME ONE Colchicine 1.2 mg 09/27/20 22:54 Colchicine 0.6 Mg Tab PO 09/27/20 22:55 ONETIME ONE - Re-Assessments/Exams Free Text/Narrative Re-Assessment/Exam: 09/27/20 23:01 Results and plan of care discussed with the patient. He agrees with this plan. Departure - Departure Time of Disposition: 23:01 Disposition: Home, Self-Care 01 Clinical Impression: Gout - Discharge Information Prescriptions: Colchicine 0.6 mg PO BID #20 capsule Instructions: Low-Purine Eating Plan, Calcium Pyrophosphate Deposition Referrals: Mehrdad Cantor MD [Primary Care Provider] - 2 Days Forms: ED Department Discharge Additional Instructions: Take the colchicine as prescribed twice daily until the pain and foot has resolved. If you develop fevers, chills or the redness spreads elsewhere in the foot, please seek reevaluation with your primary care physician or in the emergency department. The following information is given to patients seen in the emergency department who are being discharged to home. This information is to outline your options for follow-up care. We provide all patients seen in our emergency department with a follow-up referral. The need for follow-up, as well as the timing and circumstances, are variable depending upon the specifics of your emergency department visit. If you don't have a primary care physician on staff, we will provide you with a referral. We always advise you to contact your personal physician following an emergency department visit to inform them of the circumstance of the visit and for follow-up with them and/or the need for any referrals to a consulting specialist. The emergency department will also refer you to a specialist when appropriate. This referral assures that you have the opportunity for follow-up care with a specialist. All of these measure are taken in an effort to provide you with optimal care, which includes your follow-up. Under all circumstances we always encourage you to contact your private physician who remains a resource for coordinating your care. When calling for follow-up care, please make the office aware that this follow-up is from your recent emergency room visit. If for any reason you are refused follow-up, please contact the [facility] Emergency Department at and asked to speak to the emergency department charge nurse. Sepsis Event Note (ED) - Evaluation Sepsis Screening Result: No Definite Risk - Focused Exam Vital Signs: Vital Signs Temp Pulse Resp BP Pulse Ox 09/27/20 22:05 97.2 F 88 18 120/60 97
== END 2020-09-27 23:15 | disposition home or self-care (01) ==
LOC: MW.ED 21:56
DX: M10.072 Idiopathic gout, left ankle and foot (principal); K21.9 Gastro-esophageal reflux disease without esophagitis; Z88.5 Allergy status to narcotic agent; Z79.899 Other long term (current) drug therapy
CPT/HCPCS: 73630; 99283; A9270

== ENCOUNTER 2025-01-21 21:03 | Emergency (ER) | payer BC ==
[2025-01-22 01:15] VITALS: BP 116/72; PULSE 63
== END 2025-01-22 01:44 | disposition home or self-care (01) ==
LOC: MW.ED 21:03
DX: S93.402A Sprain of unspecified ligament of left ankle, initial encounter (principal); K21.9 Gastro-esophageal reflux disease without esophagitis; F17.200 Nicotine dependence, unspecified, uncomplicated; Z79.899 Other long term (current) drug therapy; Z75.3 Unavailability and inaccessibility of health-care facilities; X50.9XXA Other and unspecified overexertion or strenuous movements or postures, initial encounter
CPT/HCPCS: 29515; 73600-26-LT; 73600-LT; 99283